=== PATIENT | female | born 1975 | race Caucasian/White ===

== ENCOUNTER 2022-11-03 08:55 | Emergency (ER) | payer OTHER, SELFPAY ==
[2022-11-03] VITALS (13 sets, daily range): BP systolic 129–137; BP diastolic 65–71; PULSE 75–100; RESP 14; TEMP 36.8; O2SAT 98–100; BMI 23.3
--- NOTE | 2022-11-03 09:04 | DI.CT.S_ITS ---
PROCEDURE: CT ABDOMEN PELVIS W CON INDICATIONS: RLQ ABD pain eval for appy TECHNIQUE: After the administration of intravenous contrast, axial sections acquired from the lung bases to the pubic symphysis. Coronal and sagittal reformats were performed. For radiation dose reduction, the following was used: automated exposure control, adjustment of mA and/or kV according to patient size. COMPARISON: None. FINDINGS: Image quality: Excellent. Lung bases: Unremarkable. Heart: No significant findings. ABDOMEN: Liver: Well-circumscribed hypodensity involving inferior aspect of right hepatic lobe measures 9 millimeter in size is seen series 2, image 31. . Gallbladder: Gallbladder is within normal limits. Biliary ducts: Unremarkable. Pancreas: Unremarkable. Spleen: Unremarkable. Adrenal Glands: Unremarkable. Kidneys and Ureters: Mild fullness of bilateral renal collecting system is seen. No obstructing stone. No hydroureter. Small left renal cortical cyst is seen measures 7 millimeter in size. Stomach and Bowel: There is no bowel obstruction. Appendix is not definitively visualized. Possible normal appearing appendix is seen in right lower quadrant abdomen series 2 images 42 through 52. No abnormal bowel wall thickening or mesenteric fat stranding. No abscess collection. Peritoneum: Small amount of free fluid is seen in lower abdomen and pelvis.. No free air. Ventral Wall: No hernias. Abdominal Nodes: No retroperitoneal or mesenteric adenopathy by size criteria. Vessels: Aorta and inferior vena cava are normal in size. PELVIS: Pelvic Organs: Large lobulated and mixed solid and cystic density lesion is seen in mid to lower abdomen and measures up to 12.5 x 9.6 x 17.4 cm in largest transverse, AP and craniocaudal dimensions series 2, image 49 and series 3, image 25. It is difficult to separate this mass from fundus of uterus. Significant mass effect on the adjacent bowel loops and urinary bladder is seen. Heterogeneous enhancement of myometrium is seen with suggestion of small uterine fibroid measures 3.6 x 3.3 cm in size in posterior myometrium series 2, image 67. Bilateral ovaries are not well seen. Bladder: Unremarkable. Pelvic Nodes: No enlarged lymph nodes. Miscellaneous: No hernias are seen. Bones: No suspicious bony lesions. No acute vertebral body compression fracture. IMPRESSION: 1. Large lobulated and mixed density mass in mid to lower abdomen and pelvis measures up to 12.5 x 9.6 x 17.4 cm in size with significant mass effect on adjacent structures . This could represent a large uterine fibroid extending from fundus of uterus. Malignant mass of uterine or ovarian origin cannot be excluded. 2. Suggestion of additional uterine fibroids as above. Ovaries are not well seen on this study. 3. Appendix is not definitively identified. No secondary signs of acute appendicitis is seen. No bowel obstruction or abnormal bowel wall thickening. Small amount of peritoneal free fluid. No gross free air. No abscess collection. 4. Mild fullness of bilateral renal collecting systems. No obstructing stones or hydroureter. Finding may represent small extrarenal pelvis. Dictated by: Jose Maria Daly M.D. on 11/03/2022 at 10:09 Approved by: Jose Maria Daly M.D. on 11/03/2022 at 10:21
--- NOTE | 2022-11-03 09:09 | ED.GENADULT ---
HPI - General Adult General Chief complaint: Abdominal Pain Stated complaint: Sent [facility] WIC/ABD pain T-1 Time Seen by Provider: 11/03/22 09:04 Source: patient Mode of arrival: Wheelchair History of Present Illness HPI narrative: 46-year-old female who was sent to the emergency department for the walk-in clinic for evaluation of right-sided abdominal pain. Patient states that her symptoms started yesterday and progressively worsened since then. She initially thought she would a urinary tract infection however urinalysis performed at the walk-in clinic shows no signs of an infection. She denies any vomiting but last night did have a decreased appetite. No fevers. She would a small bowel movement this morning that did not change her abdominal pain. No prior abdominal surgeries. She does have a history of uterine fibroids. Related Data Previous Rx's Medication Instructions Recorded ondansetron 4 mg disintegrating 4 mg PO Q6H PRN nausea and 11/03/22 tablet vomiting #10 tabs tramadol 50 mg tablet 50 mg PO Q6H PRN pain #14 tabs 11/03/22 Allergies Allergy/AdvReac Type Severity Reaction Status Date / Time Sulfa (Sulfonamide Allergy Verified 11/03/22 09:04 Antibiotics) Review of Systems Cardiovascular Cardiovascular: Reports system reviewed and no additional complaints, except as documented Respiratory Respiratory: Reports system reviewed and no additional complaints, except as documented Gastrointestinal Gastrointestinal: Reports system reviewed and no additional complaints, except as documented Genitourinary Genitourinary: Reports system reviewed and no additional complaints, except as documented Patient History Social History Smoking Status: Unknown if ever smoked Smoking Status: Unknown if ever smoked alcohol intake frequency: holidays/special occasions only Substance Use Type: does not use Exam Initial Vital Signs Initial Vital Signs: Vital Signs Temperature 98.2 F 11/03/22 08:56 Pulse Rate 87 11/03/22 08:56 Respiratory Rate 14 11/03/22 08:56 Blood Pressure 137/70 11/03/22 08:56 Pulse Oximetry 100 11/03/22 08:56 Oxygen Delivery Method Room Air 11/03/22 08:56 GI Inspection: normal to inspection Palpation: soft, firm, guarding and tender (Right-sided abdomen) Other: No tenderness on the left side. Back/Spine/Pelvis Back: No CVA tenderness Neuro General: patient alert, patient awake and moves all extremities Extrem General: normal to inspection Course Orders Ordered: ED Orders 11/03/22 09:04 CT abdomen pelvis w con Stat 11/03/22 09:18 CEA [Carcinoembryonic Antigen] Urgent Cancer Antigen 125 Urgent Complete Blood Count AUTO DIFF Stat Comprehensive Metabolic Panel Stat Human Epididymis Prot 4 Urgent Lipase Stat Test Serum,Qual Stat 11/03/22 10:35 US pelvic complete Stat Sodium Chloride (Normal Saline 0.9%) 1,000 mls @ 125 mls/hr IV CONT ELIANE Last Infusion: 11/03/22 11:01 Dose: 0 mls/hr Documented By: Admin: 11/03/22 09:41 Dose: 125 mls/hr Documented By: JONH Ondansetron HCl (Ondansetron 4 Mg/2 Ml Inj) 4 mg IV NOW PRN PRN Reason: Nausea And Vomiting Discontinued Medications Morphine Sulfate (Morphine 4 Mg/Ml Inj) 4 mg IV NOW ONE Stop: 11/03/22 12:26 Last Admin: 11/03/22 12:31 Dose: 4 mg Documented By: JONH Vital Signs Vital signs: Vital Signs - 8 hr 11/03/22 08:56 11/03/22 09:01 11/03/22 09:01 Temperature 98.2 F Pulse Rate 87 93 H Respiratory Rate 14 Blood Pressure 137/70 137/70 Pulse Oximetry 100 100 Oxygen Delivery Method Room Air 11/03/22 12:36 11/03/22 12:36 Temperature Pulse Rate 96 H Respiratory Rate Blood Pressure 131/68 Pulse Oximetry 98 Oxygen Delivery Method Medical Decision Making Lab Data Lab results reviewed: Yes I reviewed the patient's lab results. 11/03/22 09:18 11/03/22 09:18 Labs: Lab Results 11/03/22 11/03/22 11/03/22 Range/Units 09:18 09:18 09:18 WBC 13.1 H (4.5-11.0) X10^3/uL RBC 4.50 (4.0-5.2) X10^6/uL Hgb 14.7 (12.0-16.0) g/dL Hct 43.1 (36-46) % MCV 95.7 (80-100) fL MCH 32.5 (26-34) PG MCHC 34.0 (30-36) % RDW 12.8 (11.6-14.8) % Plt Count 254 (150-400) X10^3/uL Neut % (Auto) 81.7 H (50-75) % Lymph % (Auto) 9.4 L (25-40) % Centre % (Auto) 8.2 (3-14) % Eos % (Auto) 0.2 L (2-4) % Baso % (Auto) 0.5 (0-2) % Neut # (Auto) 07272 H (8643-3098) /uL Lymph # (Auto) 1200 (6584-6890) /uL Centre # (Auto) 1100 H (0-900) /uL Eos # (Auto) 0 (0-450) /uL Baso # (Auto) 100 (0-100) /uL Sodium 138 (137-145) mmol/L Potassium 4.0 (3.4-5.1) mmol/L Chloride 103 (98-107) mmol/L Carbon Dioxide 24 (22-32) mmol/L BUN 8 (7-17) mg/dL Creatinine 0.49 L (0.52-1.04) mg/dL Estimated GFR > 60 (>60) mL/min BUN/Creatinine Ratio 16.3 (6-22) Glucose 108 H (70-100) mg/dL Calcium 9.6 (8.4-10.2) mg/dL Total Bilirubin 0.9 (0.2-1.3) mg/dL AST 23 (14-36) IU/L ALT 22 (<35) IU/L Alkaline Phosphatase 45 (38-126) U/L Total Protein 7.4 (6.3-8.2) g/dL Albumin 4.3 (3.5-5.0) g/dL Globulin 3.1 (1.7-4.1) g/dL Albumin/Globulin Ratio 1.4 (1.0-2.8) Lipase 169 (23-300) U/L Serum , Qual Negative (Negative) Imaging Data US - TRAFFIC WORKFORCE REPRESENTATIVE: Radiologist's Impression: PROCEDURE:? US PELVIC COMPLETE ? INDICATIONS:? LARGE OVARIAN VERSUS UTERINE MASS AND FIBROIDS ON CT. ? TECHNIQUE:? Real-time scanning was performed of the pelvic organs, with image documentation.? Additional endovaginal scanning was necessary due to incomplete visualization of the adnexal and endometrial structures by transabdominal scanning.? ? COMPARISON:? [facility], CT, CT ABDOMEN PELVIS W CON, 11/03/2022, 9:50. ? FINDINGS:? ?? Uterus:? Uterus is mildly anteverted and moderately enlarged in size at 6.0 x 6.3 x 10.9 cm. The myometrium is heterogeneous with what appears to be scattered uterine fibroids.? For example, on the right laterally at the midline there is an intramural fibroid measuring 1.4 x 1.0 x 0.8 cm.? At the midline in the submucosal space is a 2.7 x 3.6 x 2.6 cm apparent fibroid.? At the fundal portion of the uterus is what appears to be a left-sided pedunculated anterior subserosal mass that is large, complex with cystic and solid components, measuring up to 8.9 x 6.8 x 10.9 cm. The endometrium could not be effectively evaluated given subserosal fibroids and distortion of the endometrial margins by additional fibroids intramural and submucosal immediately adjacent. ? Ovaries:? What is thought to represent the right ovary measures 3.2 x 2.5 x 1.9 cm, with a calculated ovarian volume of 7.9 cc. The left ovary measures 4.7 x 2.4 x 2.1 cm, with a calculated ovarian volume of 12.3 cc. The ovaries have a normal sonographic appearance. Less than 12 follicles can be seen in each ovary.? No definite independent adnexal masses are seen.? There is no sign of ovarian torsion. ? Other:? No pathologic free abdominal or pelvic fluid. ? ? IMPRESSION:? The findings of this examination raise concern for presence of uterine malignancy.? The complexity of the large cystic and solid mass that appears to project from the fundal portion of the uterus is not typical of uterine fibroids.? Fibrosarcoma should be considered. ? The clinical history obtained by the cement sprayer helper includes a prior history of pedunculated fibroid but a remote past comparison study by either CT, MR or ultrasound is not available for review documenting such an abnormality.? Please correlate clinically.? It would be helpful to obtain comparison prior report that addresses this issue. ? Given the abnormality discussed above and the concern for malignancy follow-up by contrast-enhanced gynecological MR scanning of the pelvis and lower abdomen is recommended if prior examinations are not available for review.? Pelvic MRI also would provide better visualization of the right ovary which is somewhat poorly visualized by the current study. CT scan - abdomen/pelvis: Radiologist's Impression: PROCEDURE:? CT ABDOMEN PELVIS W CON ? INDICATIONS:? RLQ ABD pain eval for appy ? TECHNIQUE:? After the administration of intravenous contrast, axial sections acquired from the lung bases to the pubic symphysis.? Coronal and sagittal reformats were performed.? For radiation dose reduction, the following was used:? automated exposure control, adjustment of mA and/or kV according to patient size.? ? COMPARISON:? None. ? FINDINGS:? Image quality:? Excellent.? ? Lung bases:? Unremarkable. Heart:? No significant findings. ? ABDOMEN: Liver:? Well-circumscribed hypodensity involving inferior aspect of right hepatic lobe measures 9 millimeter in size is seen series 2, image 31. .? ? Gallbladder:? Gallbladder is within normal limits. Biliary ducts:? Unremarkable.? ? Pancreas:? Unremarkable.? ? Spleen:? Unremarkable.? ? Adrenal Glands:? Unremarkable.? ? Kidneys and Ureters:? Mild fullness of bilateral renal collecting system is seen.? No obstructing stone.? No hydroureter.? Small left renal cortical cyst is seen measures 7 millimeter in size. ? Stomach and Bowel:? There is no bowel obstruction.? Appendix is not definitively visualized.? Possible normal appearing appendix is seen in right lower quadrant abdomen series 2 images 42 through 52. No abnormal bowel wall thickening or mesenteric fat stranding.? No abscess collection. Peritoneum:? Small amount of free fluid is seen in lower abdomen and pelvis..? No free air.? ? Ventral Wall: ? No hernias.? Abdominal Nodes:? No retroperitoneal or mesenteric adenopathy by size criteria.? Vessels:? Aorta and inferior vena cava are normal in size.? ? PELVIS: Pelvic Organs:? Large lobulated and mixed solid and cystic density lesion is seen in mid to lower abdomen and measures up to 12.5 x 9.6 x 17.4 cm in largest transverse, AP and craniocaudal dimensions series 2, image 49 and series 3, image 25. It is difficult to separate this mass from fundus of uterus.? Significant mass effect on the adjacent bowel loops and urinary bladder is seen.? Heterogeneous enhancement of myometrium is seen with suggestion of small uterine fibroid measures 3.6 x 3.3 cm in size in posterior myometrium series 2, image 67.? Bilateral ovaries are not well seen.? Bladder:? Unremarkable.? ? Pelvic Nodes: No enlarged lymph nodes.? Miscellaneous: No hernias are seen. ? ? ? Bones:? No suspicious bony lesions.? No acute vertebral body compression fracture. ? ? IMPRESSION: ? 1. Large lobulated and mixed density mass in mid to lower abdomen and pelvis measures up to 12.5 x 9.6 x 17.4 cm in size with significant mass effect on adjacent structures .? This could represent a large uterine fibroid extending from fundus of uterus.? Malignant mass of uterine or ovarian origin cannot be excluded. ? 2. Suggestion of additional uterine fibroids as above.? Ovaries are not well seen on this study. ? 3. Appendix is not definitively identified.? No secondary signs of acute appendicitis is seen.? No bowel obstruction or abnormal bowel wall thickening.? Small amount of peritoneal free fluid.? No gross free air.? No abscess collection. ? 4. Mild fullness of bilateral renal collecting systems.? No obstructing stones or hydroureter.? Finding may represent small extrarenal pelvis.? MDM Narrative Medical decision making narrative: Patient does have a mass in the right adnexa/right lower abdomen. According to all the radiologic studies we have low suspicion that this is appendicitis. It does appear to be separate from the right ovary. It also is separate from her known uterine fibroid. Ultrasound shows concern for uterine mass. There is concern for malignancy. This is not an ectopic . Her test was negative. I did discuss the case with Dr. Plunkett on-call for referral manager who recommends the patient follow-up as an outpatient. She added on tumor markers to the blood that was already drawn today. I discussed all this with the patient. She understands our concern about potential malignancy. Plan will be to discharge patient home and have her follow-up with referral manager. She was given return precautions. She expressed understanding and agreement with plan. Discharge Plan Departure Patient Disposition: Home Clinical Impression: Pelvic mass, Abdominal pain Instructions: DI for Abdominal Pain-Adult Activity Restrictions/Additional Instructions: It is important that you follow-up with referral manager here at the hospital and also contact your primary doctor as you may need a referral. Take the medications as needed. Return to the emergency department for new or worsening symptoms. Prescriptions: New ondansetron 4 mg tablet,disintegrating 4 mg PO Q6H PRN (Reason: nausea and vomiting) Qty: 10 0RF tramadol 50 mg tablet 50 mg PO Q6H PRN (Reason: pain) Qty: 14 0RF Referrals: Bella Plunkett MD [Physician] - Provider,[facility] W[facility]ERS [Primary Care Provider] - Stand Alone Forms: Patient Portal/API
[2022-11-03 09:30] LABS: Add Manual Diff / Slide Review NO; Basophils Absolute Auto 100 /uL (0-100); Basophils Percent Auto 0.5 % (0-2); Eosinophils Absolute Auto 0 /uL (0-450); Eosinophils Percent Auto 0.2 % (2-4); Hematocrit 43.1 % (36-46); Hemoglobin 14.7 g/dL (12.0-16.0); Lymphocytes Absolute Auto 1200 /uL (1100-4500); Lymphocytes Percent Auto 9.4 % (25-40); Mean Corpuscular Hemoglobin 32.5 PG (26-34); Mean Corpuscular Volume 95.7 fL (80-100); Monocytes Absolute Auto 1100 /uL (0-900); Monocytes Percent Auto 8.2 % (3-14); Neutrophils Absolute Auto 10700 /uL (1500-7000); Neutrophils Percent Auto 81.7 % (50-75); Platelet Count 254 X10^3/uL (150-400); Red Cell Distribution Width 12.8 % (11.6-14.8); White Blood Cell Count 13.1 X10^3/uL (4.5-11.0)
[2022-11-03 09:40] LABS: Alanine Aminotransferase 22 IU/L (<35); Albumin 4.3 g/dL (3.5-5.0); Albumin Globulin Ratio 1.4 (1.0-2.8); Alkaline Phosphatase 45 U/L (38-126); Aspartate Aminotransferase 23 IU/L (14-36); BUN Creatinine Ratio 16.3 (6-22); Bilirubin Total 0.9 mg/dL (0.2-1.3); Blood Urea Nitrogen 8 mg/dL (7-17); Calcium 9.6 mg/dL (8.4-10.2); Carbon Dioxide 24 mmol/L (22-32); Chloride 103 mmol/L (98-107); Estimated Glomerular Filt Rate > 60 mL/min (>60); Globulin 3.1 g/dL (1.7-4.1); Glucose 108 mg/dL (70-100); HEMOLYSIS 22 (0-50); Lipase 169 U/L (23-300); Sodium 138 mmol/L (137-145); Total Protein 7.4 g/dL (6.3-8.2)
[2022-11-03] MEDS: SODIUM CHLORIDE 0.9% 1,000 ML 125 ML IV (09:41)
[2022-11-03 09:46] LABS: Pregnancy Test Serum,Qual Negative (Negative)
--- NOTE | 2022-11-03 10:35 | DI.US.S_ITS ---
PROCEDURE: US PELVIC COMPLETE INDICATIONS: LARGE OVARIAN VERSUS UTERINE MASS AND FIBROIDS ON CT. TECHNIQUE: Real-time scanning was performed of the pelvic organs, with image documentation. Additional endovaginal scanning was necessary due to incomplete visualization of the adnexal and endometrial structures by transabdominal scanning. COMPARISON: [facility], CT, CT ABDOMEN PELVIS W CON, 11/03/2022, 9:50. FINDINGS: Uterus: Uterus is mildly anteverted and moderately enlarged in size at 6.0 x 6.3 x 10.9 cm. The myometrium is heterogeneous with what appears to be scattered uterine fibroids. For example, on the right laterally at the midline there is an intramural fibroid measuring 1.4 x 1.0 x 0.8 cm. At the midline in the submucosal space is a 2.7 x 3.6 x 2.6 cm apparent fibroid. At the fundal portion of the uterus is what appears to be a left-sided pedunculated anterior subserosal mass that is large, complex with cystic and solid components, measuring up to 8.9 x 6.8 x 10.9 cm. The endometrium could not be effectively evaluated given subserosal fibroids and distortion of the endometrial margins by additional fibroids intramural and submucosal immediately adjacent. Ovaries: What is thought to represent the right ovary measures 3.2 x 2.5 x 1.9 cm, with a calculated ovarian volume of 7.9 cc. The left ovary measures 4.7 x 2.4 x 2.1 cm, with a calculated ovarian volume of 12.3 cc. The ovaries have a normal sonographic appearance. Less than 12 follicles can be seen in each ovary. No definite independent adnexal masses are seen. There is no sign of ovarian torsion. Other: No pathologic free abdominal or pelvic fluid. IMPRESSION: The findings of this examination raise concern for presence of uterine malignancy. The complexity of the large cystic and solid mass that appears to project from the fundal portion of the uterus is not typical of uterine fibroids. Fibrosarcoma should be considered. The clinical history obtained by the network mgr includes a prior history of pedunculated fibroid but a remote past comparison study by either CT, MR or ultrasound is not available for review documenting such an abnormality. Please correlate clinically. It would be helpful to obtain comparison prior report that addresses this issue. Given the abnormality discussed above and the concern for malignancy follow-up by contrast-enhanced gynecological MR scanning of the pelvis and lower abdomen is recommended if prior examinations are not available for review. Pelvic MRI also would provide better visualization of the right ovary which is somewhat poorly visualized by the current study. We strive to produce accurate, complete, and clear reports of imaging services. To assist us in improving patient care, this report was composed using standard report templates and voice recognition software. Therefore, it may contain abnormal punctuation, insertions and/or omissions. Occasional wrong-word or sound-alike substitutions may occur. Though we review the report and make efforts to correct it, we do recommend that the report be read carefully in proper context to recognize any text inaccuracies. Dictated by: Low Escoto M.D. on 11/03/2022 at 13:34 Approved by: Low Escoto M.D. on 11/03/2022 at 13:48
[2022-11-03] MEDS: MORPHINE 4 MG/ML INJ IV (12:31)
[2022-11-03 15:43] LABS: Cancer Antigen 125 64.4 U/mL (0-35); Carcinoembryonic Antigen 0.7 ng/mL (0.1-3.0)
[2022-11-07 10:27] LABS: Human Epididymis Prot 4 55.4 pmol/L (0.0-63.6)
== END 2022-11-03 15:40 | disposition home or self-care (01) ==
PROVIDERS: Specialist; Emergency Provider Emergency Medicine
DX: R10.31 Right lower quadrant pain (principal); R19.00 Intra-abdominal and pelvic swelling, mass and lump, unspecified site
CPT/HCPCS: 36415; 74177; 76830; 76856; 80053; 82378; 83690; 84703; 85025; 86304; 86305; 93976; 96361; 96374; 99284; J2270; Q9967